=== PATIENT | female | born 1960 | race Caucasian/White ===

== ENCOUNTER → 2020-03-23 08:43 | Outpatient (BNVA) | payer MEDICAID, SELFPAY | PROVIDERS: PCP Internal Medicine; Referring Provider Internal Medicine; Visit Provider Student in an Organized Health Care Education/Training Program | DX: Z76.89 Persons encountering health services in other specified circumstances (principal) ==

== ENCOUNTER → 2020-10-18 15:25 | Outpatient (BNVA) | payer MEDICAID, SELFPAY | PROVIDERS: PCP Internal Medicine; Referring Provider Internal Medicine; Visit Provider Student in an Organized Health Care Education/Training Program | DX: M35.3 Polymyalgia rheumatica (principal); Z79.52 Long term (current) use of systemic steroids | CPT/HCPCS: 99212 ==

== ENCOUNTER 2020-10-20 13:44 | Outpatient (REF) | payer MEDICAID, SELFPAY ==
--- NOTE | ~2020-10-20 | MM_ITS ---
EXAMINATION: BONE DENSITOMETRY CLINICAL INDICATION: Long-term (current) use of systemic steroids. COMPARISON: This is the patient's baseline examination. TECHNIQUE: Using a Geodesic dome [place] DXA System (software version: 13.1) manufactured by [employer], dual-energy x-ray absorptiometry was performed of the lumbar spine and left hip. The images are of good technical quality. Summary results are attached. FINDINGS: AP SPINE L1-L4: BMD 1.137 g/cm2, Z-score 0.0, T-score -0.4, normal. LEFT FEMUR, NECK: BMD 0.830 g/cm2, Z-score -0.8, T-score -1.5, osteopenia. LEFT FEMUR, TOTAL: BMD 0.942 g/cm2, Z-score -0.2, T-score -0.5, normal. IDENTIFIED RISK FACTORS: Early menopause, glucocorticoids (chronic), secondary osteoporosis. HISTORY OF FRACTURE: None listed. MEDICATIONS: None listed. MM/XR DEXA axial skeleton IMPRESSION: 1. DIAGNOSIS: Osteopenia based on the lowest T-score value of -1.5 in the femoral neck applying World Health Organization criteria. 2. 10-YEAR FRACTURE RISK PREDICTION, FRAX: Major osteoporotic fracture (clinical spine, forearm, hip or shoulder) 6.5%. Hip fracture 0.6%. 3. Treatment Recommendations: NOF guidelines recommend consideration for treatment in postmenopausal women and men age 50 and older presenting with the following: -A hip or vertebral (clinical or morphometric) fracture. -T-score less than or equal to -2.5 at the femoral neck or spine after appropriate evaluation to exclude secondary causes. -Low bone mass at the hip or spine and a 10-year fracture probability by FRAX of greater than or equal to 3% for hip fracture or greater than or equal to 20% for major osteoporotic fracture based on the [place] adapted WHO algorithm. 4. Other Recommendations: All treatment decisions require clinical judgment and consideration of individual patient factors, including patient preferences, comorbidities, previous drug use, risk factors not captured in the FRAX model (e.g. frailty, falls, vitamin D deficiency, increased bone turnover, interval significant decline in bone density) and possible under or overestimation of fracture risk by FRAX. Additional medical evaluation for secondary cause of low bone mineral density may be appropriate. FUTURE SCAN RECOMMENDATION: People with diagnosed cases of osteoporosis or at high risk for fracture should have regular bone mineral density tests. For patients eligible for Medicare, routine testing is allowed once every 2 years. The testing frequency can be increased to one year for patients who have rapidly progressing disease, those who are receiving or discontinuing medical therapy to restore bone mass, or have additional risk factors.
== END 2020-10-20 13:45 | disposition home or self-care (01) ==
LOC: HO.MAMMO 13:44
PROVIDERS: Visit Provider Student in an Organized Health Care Education/Training Program
DX: Z79.52 Long term (current) use of systemic steroids (principal)
CPT/HCPCS: 77080

== ENCOUNTER 2025-01-12 11:21 | Emergency (ER) | payer SELFPAY ==
--- NOTE | ~2025-01-12 | XR_ITS ---
EXAMINATION: XR CHEST CLINICAL INFORMATION: dyspnea COMPARISON: None available. TECHNIQUE: 2 views of the chest were obtained. FINDINGS: The cardiac, hilar, and mediastinal contours are normal. The lungs are clear bilaterally. There is no pneumothorax or pleural effusion. There is no focal osseous or soft tissue abnormality. Mild degenerative changes of the spine. XR/XR chest 2V IMPRESSION: No active pulmonary disease. Electronically signed by: Hussein Peralta MD 01/12/2025 11:49 AM EDT
--- NOTE | ~2025-01-12 | US_ITS ---
EXAMINATION: US TRIPLEX LOWER EXTREMITY, BILATERAL CLINICAL INFORMATION: Bilateral lower extremity edema. COMPARISON: None available. TECHNIQUE: Color-flow triplex imaging with spectral analysis and compression Doppler were performed on the bilateral lower extremities. FINDINGS: Respiratory variation, normal compression and augmented flow are noted throughout the bilateral lower extremities. The visualized common femoral vein, superficial femoral vein, profunda femoral vein, popliteal vein and midcalf peroneal and posterior tibial venous segments show no evidence of deep venous thrombosis bilaterally. There is no Linares's cyst. US/US venous duplex LE BI IMPRESSION: No evidence of deep venous thrombosis involving the bilateral lower extremities. Electronically signed by: Hussein Peralta MD 01/12/2025 03:57 PM EDT
[2025-01-12 11:32] VITALS: BP 196/86; PULSE 64; RESP 18; TEMP 36.8; O2SAT 98; BMI 36.6
--- NOTE | 2025-01-12 11:32 | ED_ITS ---
HPI - General Adult General Chief complaint: Extremity Injury, Lower Stated complaint: bilateral ankle swolling, pain, sob Time Seen by Provider: 01/12/25 12:58 Source: patient Mode of arrival: ambulatory Limitations: no limitations History of Present Illness ED Provider: DR. Abarca HPI narrative: 64-year-old female came in for evaluation of bilateral eye ankle swelling for few days, patient declined any recent travel, no recent prolonged immobilization patient also been having a mild shortness of breath only with exertion. Otherwise no fever, no chills, no shortness of breath, no CP no recent prolonged immobilization. Five years ago patient had left knee surgery complicated with post surgical DVT and pulmonary embolism patient now is off anticoagulation. Related Data Home Medications ?Medication ?Instructions ?Recorded ?Confirmed aspirin 81 mg tablet,delayed 81 mg PO DAILY 03/23/20 1 05/24/19 release insulin degludec 100 unit/mL (3 10 unit subcut DAILY 1 05/24/19 03/23/20 mL) subcutaneous pen (Tresiba FlexTouch U-100 insulin) lisinopril 5 mg tablet 5 mg PO DAILY 03/23/2003/23 metformin 500 mg tablet 500 mg PO BID 03/23/2003/23 sitagliptin phosphate 100 mg 100 mg PO DAILY 03/23/20 03/23/20 tablet (Januvia) Previous Rx's ?Medication ?Instructions ?Recorded prednisone 1 mg tablet 4 mg (4 x 1 mg) PO DAILY #12 0 tabs 10/18/20 Allergies Allergy/AdvReac Type Severity Reaction Status Date / Time No Known Allergies Allergy Verified 01/12/25 11:34 Review of Systems 2 Review of Systems: All other systems are reviewed and are negative Constitutional: Reports as per HPI and Reports no additional constitutional complaints Eyes: Reports as per HPI and Reports no additional eye complaints Reports system reviewed and no additional complaints, except as documented Cardiovascular: Reports as per HPI and Reports no additional cardiovascular complaints Respiratory: Reports as per HPI and Reports no additional respiratory complaints Gastrointestinal: Reports as per HPI and Reports no additional gastrointestinal complaints Genitourinary: Reports no additional female genitourinary complaints Musculoskeletal: Reports no additional musculoskeletal complaints Skin/Breast: Reports system reviewed and no additional complaints, except as docu Psychiatric: Reports no additional psychiatric complaints Endocrine: Reports no additional endocrine complaints Hematologic/Lymphatic: Reports no additional hematologic/lymphatic complaints Allergic/Immunologic: Reports no additional allergic/immunologic complaints Reports system reviewed and no additional complaints, except as documented and Reports Abnormal speech present [facility] Past Medical History Medical History Denial Polymyalgia rheumatica Family History Family History Maternal Grandmother Diabetes Father MVA (motor vehicle accident) Mother AIDS Social History Social History Household Members: None Housing: Apartment Alcohol intake: current Alcohol intake frequency: holidays/special occasions only Patient Tobacco Use Status: Never used Tobacco Smoked in Last 30 Days: No Use of substances other than those prescribed or required for medical reasons: No Advance Directives: No Advance Directives Information Provided: Yes Do you have a plan to hurt others: No Plan Patient : No service: No Current occupational status: employed Physical Exam ED Vital Signs: Vital Signs - 24 hr 01/12/25 11:32 01/12/25 12:53 01/12/25 14:01 Temperature 98.2 F 98.1 F 98.4 F Pulse Rate 64 59 63 Respiratory Rate 18 13 10 L Blood Pressure 196/86 H 145/69 H 146/66 H Pulse Oximetry 98 99 100 Oxygen Delivery Method Room Air Room Air Room Air 01/12/25 16:34 01/12/25 16:50 Temperature 98.4 F 98.4 F Pulse Rate 63 63 Respiratory Rate 10 L 10 L Blood Pressure 146/66 H 146/66 H Pulse Oximetry 100 100 Oxygen Delivery Method Room Air Room Air BMI result Body Mass Index 36.6 Vital signs have been reviewed and appear to be correct. Blood pressure elevated. Heart rate normal. Respiratory rate normal. Temperature normal. Oxygen saturation normal. Appearance: Alert. Oriented X3. No acute distress. Head: Normal external exam. Normocephalic. Atraumatic. No [place] signs noted. No raccoon eyes noted Eyes: PERRLA. EOMI. Conjunctiva and sclera normal. Eyelids normal. ENT: TM's Normal. Pharynx normal. Uvula midline. Moist mucous membranes. No trismus noted. No drooling noted. No muffled voice noted. Neck: Normal inspection. Neck supple. FROM. No adenopathy. Thyroid Normal. No meningeal signs. No neck mass noted. CVS: Normal heart rate and rhythm. Heart sound normal. No murmurs noted. Pulses normal throughout. Respiratory: No respiratory distress. Painless inspiration. Breath sounds normal. No wheezes/rales/rhonchi noted. Chest nontender. No accessory muscle usage noted or decreased air movement noted. Abdomen: Soft and nontender. Bowel sounds normal in all 4 quadrants. No distention noted. No organomegaly noted. No visible injury noted. Back: No CVA tenderness. Full range of motion noted. Skin: Skin warm and dry. Normal skin color. Normal skin turgor. No rashes/lesions/lacerations noted. Extremities: +1 bilateral ankle edema. Extremities exhibit normal range of motion. Extremities nontender. Neuro: Oriented X 3. Cranial nerve exam: II-XII are grossly intact No motor deficit. No sensory deficit. Reflexes normal. Course Course Course Narrative: This is a rapid medical exam performed by Bhavik Jarrett NP: Additional HPI, ROS, PE not included below will be deferred to primary provider. Patient is a 64y/o F pmhx polymyalgia rheumatica with skilled nursing systemic steroid use presenting with several days of bilateral ankle swelling and dyspnea. Has tried elevating, ice without improvement. Hypertensive in triage, not on BP meds. 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 Cartwright to check on the ultrasound expect no complications and discharge home with follow up with pcp. Time: 15:20 Medical Decision Making Differential Diagnosis Differential Diagnoses: The differential diagnosis associated with the presentation includes (DVT, CHF, renal disease, hepatic disease, venous stasis, electrolyte derangement, severe anemia urinary) Admission/Observation Consideration of admission/observation: Escalation of care including admission/observation considered Lab Data MDM Lab Attestation statement: I reviewed the patient's lab results. 01/12/25 12:13 01/12/25 12:13 Labs: Lab Results 01/12/25 01/12/25 Range/Units 12:13 13:11 WBC 7.4 (4.8-10.8) X10*3/uL RBC 4.61 (4.20-5.50) X10*6/uL Hgb 12.1 (12.0-16.0) g/dl Hct 38.1 (37.0-47.0) % MCV 82.6 (80.0-98.0) fL MCH 26.2 L (27.0-33.0) pg MCHC 31.8 (31.0-35.0) g/dl RDW 15.2 (11.0-16.0) % Plt Count 170 (160-400) X10*3/uL MPV 11.1 (9.4-12.3) fL Immature Gran % (Auto) 0.3 (0.0-0.4) % Neut % (Auto) 62.9 (45-73) % Lymph % (Auto) 28.2 (20-40) % [place] % (Auto) 6.6 (2-11) % Eos % (Auto) 1.5 (0-4) % Baso % (Auto) 0.5 (0-2) % Lymph # (Auto) 2.1 (1.2-4.9) X10*3/uL [place] # (Auto) 0.5 (0.1-1.2) X10*3/uL Eos # (Auto) 0.1 (0.0-0.4) X10*3/uL Baso # (Auto) 0.0 (0.0-0.2) X10*3/uL Abs Immat Gran (auto) 0.02 (0.00-0.03) X10*3/uL Absolute Neuts (auto) 4.7 (2.0-8.3) x10*3/uL Absolute Nucleated RBC 0.000 (0.0-0.012) X10*3/uL Nucleated RBC % (auto) 0.0 (0.0-0.2) /100WBC Sodium 140 (135-145) mmol/L Potassium 4.7 (3.3-5.1) mmol/L Chloride 106 (96-108) mmol/L Carbon Dioxide 30 H (22-29) mmol/L Anion Gap 9 L (12-20) BUN 15 (9-16) mg/dL Creatinine 0.81 (0.5-1.4) mg/dL Estim Creat Clear Calc 73.5 Estimated GFR > 60 Random Glucose 112 (60-115) mg/dL Calcium 9.1 (8.4-10.2) mg/dL Total Bilirubin 0.3 (0.0-1.0) mg/dL AST 23 (5-31) U/L ALT 16 (0-31) U/L Alkaline Phosphatase 77 (39-117) U/L Troponin I High Sens < 2.7 (<3.5-17.0) ng/L NT-Pro-B Natriuret Pep 258.2 (<300) pg/mL Total Protein 6.9 (6.5-8.0) g/dL Albumin 3.9 (3.5-5.0) g/dL Urine Color Yellow Urine Appearance Clear Urine pH 5.5 (5.0-9.0) Ur Specific [place] 1.010 (1.005-1.025) Urine Protein Negative (Neg-Trace) mg/dL Urine Glucose (UA) Negative (Negative) mg/dL Urine Ketones Negative (Negative) mg/dL Urine Blood Negative (Negative) Urine Nitrite Negative (Negative) Ur Leukocyte Esterase Negative (Negative) Independent Interpretation I performed an independent interpretation of an: Plain X-Ray (Chest: No acute intrathoracic pathology.) Radiology Impression Discussion of test interpretation with radiology: I have reviewed the radiologist's reading. Discharge Plan Discharge Clinical Impression: Ankle swelling Patient Disposition: Home, Self-Care Instructions: Swollen Joint (ED) Prescriptions: No Action Tresiba FlexTouch U-100 100 unit/mL (3 mL) insulin pen 10 unit subcut DAILY lisinopril 5 mg tablet 5 mg PO DAILY metformin 500 mg tablet 500 mg PO BID aspirin 81 mg tablet,delayed release (DR/EC) 81 mg PO DAILY Januvia 100 mg tablet 100 mg PO DAILY prednisone 1 mg tablet 4 mg PO DAILY Qty: 120 2RF Referrals: Favian Espinosa DO, MD [Primary Care Provider, Internal Medicine] Interventions: ED Discharge Assessment Last Done: 01/12/25 16:50 Discharge Date/Time: 01/12/25 16:50 Print Language: Burundian
--- NOTE | 2025-01-12 11:34 | ECG_ITS ---
Test Reason : SOB Blood Pressure : */* mmHG Vent. Rate : 62 BPM Atrial Rate : 62 BPM P-R Int : 152 ms QRS Dur : 74 ms QT Int : 386 ms P-R-T Axes : 61 42 27 degrees QTcB Int : 391 ms Normal sinus rhythm Normal ECG No previous ECGs available Referred By: Lolly Jarrett Electronically Signed By: Amos Ackerman
[2025-01-12 12:19] LABS: MANUAL DIFF FLAG NO
[2025-01-12 12:21] LABS: Hematocrit 38.1 % (37.0-47.0); Hemoglobin 12.1 g/dl (12.0-16.0); Imm Gran Abs Auto 0.02 X10*3/uL (0.00-0.03); Imm Gran Pct Auto 0.3 % (0.0-0.4); Lymphocytes Absolute Auto 2.1 X10*3/uL (1.2-4.9); Mean Corpuscular HGB Conc 31.8 g/dl (31.0-35.0); Mean Corpuscular Hemoglobin 26.2 pg (27.0-33.0); Mean Corpuscular Volume 82.6 fL (80.0-98.0); NRBC Abs Auto 0.000 X10*3/uL (0.0-0.012); NRBC Pct Auto 0.0 /100WBC (0.0-0.2); Platelet Count 170 X10*3/uL (160-400); Red Blood Count 4.61 X10*6/uL (4.20-5.50); White Blood Count 7.4 X10*3/uL (4.8-10.8)
[2025-01-12 12:36] LABS: Alanine Aminotransferase 16 U/L (0-31); Albumin Level 3.9 g/dL (3.5-5.0); Alkaline Phosphatase 77 U/L (39-117); Anion Gap 9 (12-20); Aspartate Amino Transferase 23 U/L (5-31); Blood Urea Nitrogen 15 mg/dL (9-16); Calcium 9.1 mg/dL (8.4-10.2); Carbon Dioxide 30 mmol/L (22-29); Chloride 106 mmol/L (96-108); Creatinine Clr Calc Pharmacy 73.5; Estimated Glomerular Filt Rate > 60; Potassium 4.7 mmol/L (3.3-5.1); Sodium 140 mmol/L (135-145); Total Protein 6.9 g/dL (6.5-8.0)
[2025-01-12 12:42] LABS: NT Pro B Type Natriuretic Pept 258.2 pg/mL (<300)
[2025-01-12 12:46] LABS: Troponin-I High Sensitivity < 2.7 ng/L (<3.5-17.0)
[2025-01-12 12:53] VITALS: BP 145/69; PULSE 59; RESP 13; TEMP 36.7; O2SAT 99
--- NOTE | 2025-01-12 12:58 | PC.NURSE ---
Patient presents to ED c/o ankle swelling and pain with some SOB O2 98% RA Pain rated 7/10 which started on Friday and worsened since then No hx of CHF, asthma Blood collected/sent CXR = negative EKG = NSR Awaiting urine sample at this time Plan of care on going
[2025-01-12 13:18] LABS: Appearance Urine Clear; Glucose Urine UA Negative (Negative); PH 5.5 (5.0-9.0); Specific Gravity - Urine 1.010 (1.005-1.025)
[2025-01-12 14:01] VITALS: BP 146/66; PULSE 63; RESP 10; TEMP 36.9; O2SAT 100
--- OUTSIDE RECORDS SUMMARY | 2025-01-12 14:52 | XMS_ITS | Clinical Summary ---
Author Organization [address] Address [address] [place] [id number] Phone Care Team Providers Care Cook Vacuum Kettle Name Role Phone Favian Espinosa DO Primary Care Provider [phone] Surgical History Surgery Date Site/Laterality Comments KNEE SURGERY Left PROCEDURE: HISTORICAL KNEE SURGERY; COMMENT: around 2014, at [facility], had DVT Medical History Medical History Date Comments DVT (deep venous thrombosis) ([facility] V24, [facility] V28) DX:DVT (deep venous thrombos is) ([facility]) HTN (hypertension) DX:HTN (hyper tension) Thyroid nodule DX:Thyroid nodul e PMR (polymyalgia rheumatica) ([facility] V24) DX:PMR (polymyalgia rheumatica) ([facility]) Family History Medical History Relation Name Comments No Known Problems Father Diabetes Maternal Grandmother No Known Problems Mother Cervical cancer Sister 1 mirtha Other: neck cancer, possible in lymph nodes Sister 2 Lorrie Relation Name Status Comments Father Maternal Grandfather Maternal Grandmother Mother Paternal Grandfather Paternal Grandmother Sister 1 mirtha Alive Sister 2 Lorrie Alive Social History Tobacco Use Types Packs/Day Years Used Date Smoking Tobacco: Never Smokeless Tobacco: Never Comments Unknown Sex and Gender Information Value Date Recorded Sex Assigned at Not on file Legal Sex Female 2:54 AM EST Gender Identity Not on file Sexual Orientation Not on file Obstetrics History Last Filed Vital Signs Vital Sign Reading Time Taken Comments Blood Pressure 120/62 04/26/2022 1:25 PM EST Cuf f Pulse 67 04/26/2022 1:25 PM EST Temperature - - Respiratory Rate - - Oxygen Saturation - - Inhaled Oxygen Concentration - - Weight 78.3 kg (172 lb 9.6 oz) 04/26/2022 1:25 P M EST Height 157.5 cm (5' 2 ) 04/26/2022 1:25 PM EST Body Mass Index 31.57 04/26/2022 1:25 PM EST Plan of Treatment Health Maintenance Due Date Last Done Comments Breast Cancer Screening 1960 Cervical Cancer Screening: P ap Smear 1981 Pneumococcal Vaccine: 50+ Years (1 of 1 - PCV) 2010 Zoster Vaccines (1 of 2) 2010 Cholesterol Screening (Lipid Panel) 03/24/2022 HIV Screening 03/24/2022 Hepatitis C Screening 03/24/2022 Social Influencers of Health Screening 03/24/2022 Depression Screening 04/21/2024 COVID-19 Vaccine (3 - 2024-2 6 season) 2024 08/04/2020, 07/13/2020 Influenza Vaccine (#1) 2024 , 02/28/2022 Hypertension/CHF/CAD Annual BMP Blood Test 03/09/2025 03/09/2024 Colorectal Cancer Screening: Colonoscopy 09/17/2026 09/17/2016 DTaP,Tdap,and Td Vaccines (2 - Td or Tdap) 02/27/2034 02/28/2024 RSV Immunization Adult Patients (1 - 1-dose 75+ series) 2035 HIB Vaccines Aged Out No longer eligi ble based on patient's age to complete this topic HPV Vaccines Aged Out No longer eligi ble based on patient's age to complete this topic Hepatitis A Vaccines Aged Out No long er eligible based on patient's age to complete this topic Hepatitis B Vaccines Aged Out No long er eligible based on patient's age to complete this topic IPV Vaccines Aged Out No longer eligi ble based on patient's age to complete this topic MMR Vaccines Aged Out No longer eligi ble based on patient's age to complete this topic Meningococcal ACWY Vaccine Aged Out N o longer eligible based on patient's age to complete this topic Meningococcal B Vaccine Aged Out No l onger eligible based on patient's age to complete this topic RSV Immunization Patients Under 20 months Aged Out No longer eligible b ased on patient's age to complete this topic Varicella Vaccines Aged Out No longer eligible based on patient's age to complete this topic Procedures Procedure Name Priority Date/Time Associated Diagnosis Comments COMPREHENSIVE METABOLIC PANEL Routine 03/09/2024 8:36 AM EST Weight gain EXTERNAL COLONOSCOPY REPORT Routine 09/17/2016 9:27 AM EDT from Last 3 Months or Most Recently Relevant to Health Maintenance Results * (ABNORMAL) Comprehensive metabolic panel (03/09/2024 8:36 AM EST) Sodium 141 133 - 145 mmol/L LAB CHEMISTRY METHOD 03/09/2024 11:40 AM [facility] Potassium 4.5 3.5 - 5.5 mmol/L LAB CHEMISTRY METHOD 03/09/2024 11:40 AM [facility] Chloride 107 96 - 110 mmol/L LAB CHEMISTRY METHOD 03/09/2024 11:40 AM [facility] CO2 30 21 - 32 mmol/L LAB CHEMISTRY METHOD 03/09/2024 11:40 AM [facility] Anion Gap 4 3 - 11 LAB CHEMISTRY METHOD 03/09/2024 11:40 AM [facility] Glucose 120(H) 70 - 100 mg/dL LAB CHEMISTRY METHOD 03/09/2024 11:40 AM [facility] BUN 18 5 - 25 mg/dL LAB CHEMISTRY METHOD 03/09/2024 11:40 AM [facility] Creatinine 0.86 0.50 - 1.10 mg/dL LAB CHEMISTRY METHOD 03/09/2024 11:40 AM [facility] eGFR 76 >=60 mL/min/1. 73m2 LAB CHEMISTRY METHOD 03/09/2024 11:40 AM [facility] Comment:Calculation based on the Chronic Kidney Disease Epidemiology Collaboration (CKD-EPI) equation refit without adjustment for race. BUN/Creatinine Ratio 20.9 LAB CHEMISTRY METHOD 03/09/2024 11:40 AM [facility] Calcium 8.9 8.5 - 10.5 mg/dL LAB CHEMISTRY METHOD 03/09/2024 11:40 AM [facility] AST (SGOT) 14 10 - 42 unit/L LAB CHEMISTRY METHOD 03/09/2024 11:40 AM [facility] ALT (SGPT) 19 10 - 60 unit/L LAB CHEMISTRY METHOD 03/09/2024 11:40 AM [facility] Alkaline Phosphatase 79 42 - 121 unit/L LAB CHEMISTRY METHOD 03/09/2024 11:40 AM [facility] Total Protein 6.8 6.0 - 8.0 g/dL LAB CHEMISTRY METHOD 03/09/2024 11:40 AM [facility] Albumin 3.5 3.2 - 5.0 g/dL LAB CHEMISTRY METHOD 03/09/2024 11:40 AM [facility] Total Bilirubin 0.4 0.0 - 1.4 mg/dL LAB CHEMISTRY METHOD 03/09/2024 11:40 AM [facility] Blood Venous blood specimen / Unknown Venipuncture / Unknown 03/09/2024 8:36 AM EST 03/09/2024 8:36 AM EST Gi Sousa NP LAB BLOOD ORDERABLES Fi nal Result [facility] [address] [place] [address], * External Colonoscopy Report (09/17/2016 9:27 AM EDT) Anatomical Region Laterality Modality Endoscopy Historical Provider GI~PROCEDURE ORDERABLES F inal Result from Last 3 Months or Most Recently Relevant to Health Maintenance Insurance MEDICAID - [place] Care Teams Cook Vacuum Kettle Relationship Specialty Start Date End Date Favian Espinosa DO [address] [place] [phone] PCP - General Internal Medicine 02/26/17
--- OUTSIDE RECORDS SUMMARY | 2025-01-12 14:52 | XMS_ITS | Encounter Summary ---
Demographics Address [address] [place] [address] Mobile Phone Home Phone Preferred Language Romansh Marital Status Single Caodaism Affiliation Unknown Race White Ethnic Group or Author Organization [facility] Address [address] [place] [address] Phone Care Team Providers Care Software Project Manager Name Role Phone Favian Espinosa DO Primary Care Provider [phone] Encounter Details Date Type Department Care Team (Late st Contact Info) Description 11/11/2018 Procedure Pass [facility] [address] [address] Social History Tobacco Use Types Packs/Day Years Used Date Smoking Tobacco: Never Alcohol Use Standard Drinks/Week Comments Yes 0 (1 standard drink = 0.6 oz pur e alcohol) Comments Unknown Sex and Gender Information Value Date Recorded Sex Assigned at Not on file Legal Sex Female 3:39 PM EDT Gender Identity Not on file Sexual Orientation Not on file documented as of this encounter Plan of Treatment Not on file documented as of this encounter Visit Diagnoses Not on filedocumented in this encounter Care Teams Software Project Manager Relationship Specialty Start Date End Date Favian Espinosa DO [address] [place] [address] [address] [place] [address] PCP - General Internal Medicine 09/08/18 documented as of this encounter Additional Source Comments The information contained in this document represents components of the legal health record. It is not the complete legal health record.[facility]
--- OUTSIDE RECORDS SUMMARY | 2025-01-12 14:52 | XMS_ITS | Clinical Summary ---
Demographics Address [address] [place] [address] Mobile Phone Home Phone Preferred Language Belarusian Marital Status Single Muslim Affiliation Unknown Race White Ethnic Group or Author Organization [facility] Address [address] [place] [address] Phone Care Team Providers Care Bobbin Loose End Finder Name Role Phone ManuelFavian florence Primary Care Provider [phone] Allergies No known active allergies Medications Ca cit-D3-mag#11-zi ae-qlhn-dlj-bor (CALTRATE 600+D) 600 mg calcium- 800 unit-50 mg Tab Take 1 tablet by mouth daily. Active metFORMIN (GLUCOPHAGE) 500 MG tablet Take 500 mg by mouth 2 (two) times a day with meals. Active SITagliptin (JANUVIA) 100 MG tablet Take 50 mg by mouth daily. Active insulin degludec U-200 (TRESIBA FLEXTOUCH) 200 unit/mL (3 mL) InPn injection pen Inject under the skin. Active lisinopril (PRINIVIL,ZESTRI L) 5 MG tablet Take 1 tablet (5 mg total) by mouth daily. 30 tablet 11 11/05/2018 Active Active Problems Problem Noted Date Diagnosed Date Fibromyalgia Polymyalgia rheumatica Anxiety Obesity Thyroid nodule Family History Medical History Relation Comments Venous thrombosis Neg Hx Social History Tobacco Use Types Packs/Day Years Used Date Smoking Tobacco: Never Alcohol Use Standard Drinks/Week Comments Yes 0 (1 standard drink = 0.6 oz pur e alcohol) Education Answer Date Recorded Are you interested in more education? Not on berta e 08/16/2022 Are you concerned about learning? Not on file 08/16/2022 No 08/16/2022 No 08/16/2022 Digital Access Answer Date Recorded No 09/14/2022 No 09/14/2022 No 09/14/2022 Reliable internet access at home? Not on file 09/14/2022 Device with a working camera? Not on file Comments Unknown Sex and Gender Information Value Date Recorded Sex Assigned at Not on file Legal Sex Female 3:39 PM EDT Gender Identity Not on file Sexual Orientation Not on file Last Filed Vital Signs Vital Sign Reading Time Taken Comments Blood Pressure 186/85 11/20/2018 3:07 PM EDT Pulse 83 11/20/2018 3:07 PM EDT Temperature - - Respiratory Rate 14 11/20/2018 3:07 PM EDT Oxygen Saturation 99% 11/20/2018 3:07 PM EDT Inhaled Oxygen Concentration - - Weight - - Height - - Body Mass Index - - Plan of Treatment Health Maintenance Due Date Last Done Comments Adult Td,Tdap Booster 1960 CREATININE LEVEL 1960 LIPID PANEL 1960 POTASSIUM LEVEL 1960 DEPRESSION SCREENING 1972 HEPATITIS C SCREENING 1978 HIV ONE-TIME SCREENING (18-6 5 YEARS) 1978 PAP SMEAR 1981 SMOKING STATUS SCREENING (On ce After 26 Yrs) 1986 MAMMOGRAM 2000 COLOGUARD 2005 COLONOSCOPY 2005 COLORECTAL CANCER SCREENING 2005 FIT TEST 2005 FOBT 2005 SIGMOIDOSCOPY 2005 VIRTUAL COLONOSCOPY 2005 PNEUMOCOCCAL VACCINES (50+ y ears) (1 of 1 - PCV) 2010 ZOSTER VACCINES (1 of 2) 2010 INFLUENZA VACCINE (#1) 2024 COVID-19 VACCINE (2 - 2024-2 6 season) 2024 07/13/2020 RSV VACCINE (1 - 1-dose 75+ series) 2035 HEPATITIS A VACCINES Aged Out No long er eligible based on patient's age to complete this topic HIB VACCINES Aged Out No longer eligi ble based on patient's age to complete this topic MENINGOCOCCAL VACCINES (ACWY) Aged Out No longer eligible based on patient's age to complete this topic MENINGOCOCCAL VACCINES (B) Aged Out N o longer eligible based on patient's age to complete this topic Medical Devices Not on file Insurance [facility] Care Teams Bobbin Loose End Finder Relationship Specialty Start Date End Date Favian Espinosa DO [address] [place] [id number] PCP - General Internal Medicine 09/08/18 Additional Source Comments The information contained in this document represents components of the legal health record. It is not the complete legal health record.[facility]
--- OUTSIDE RECORDS SUMMARY | 2025-01-12 14:52 | XMS_ITS | Encounter Summary ---
Demographics Address [address] [place] [address] Mobile Phone Home Phone Preferred Language Slovak Marital Status Single Latter Day Affiliation Unknown Race White Ethnic Group or Author Organization [facility] Address [address] [place] [address] Phone Care Team Providers Care Metal Sander Name Role Phone Favian Espinosa DO Primary Care Provider [phone] Encounter Details Date Type Department Care Team (Late st Contact Info) Description 10/01/2018 Ancillary Orders PHYSICIAN [facility] Wei Todd MD [address] [place] [id number] Cluster headache, not intractable, unspecified chronicity pattern Social History Tobacco Use Types Packs/Day Years Used Date Smoking Tobacco: Never Assessed Comments Unknown Sex and Gender Information Value Date Recorded Sex Assigned at Not on file Legal Sex Female 3:39 PM EDT Gender Identity Not on file Sexual Orientation Not on file documented as of this encounter Plan of Treatment Not on file documented as of this encounter Visit Diagnoses Diagnosis Cluster headache, not intractable, unspecified chronicity pattern documented in this encounter Care Teams Metal Sander Relationship Specialty Start Date End Date Favian Espinosa DO [address] [place] [address] [address] [place] [address] PCP - General Internal Medicine 09/08/18 documented as of this encounter Additional Source Comments The information contained in this document represents components of the legal health record. It is not the complete legal health record.[facility]
--- OUTSIDE RECORDS SUMMARY | 2025-01-12 14:52 | XMS_ITS | Encounter Summary ---
Demographics Address [address] [place] [address] Mobile Phone Home Phone Preferred Language Tamazight Marital Status Single Lutheran Affiliation Unknown Race White Ethnic Group or Author Organization [facility] Address [address] [place] [address] Phone Care Team Providers Care Bore Mill Operator Name Role Phone Favian Espinosa DO Primary Care Provider [phone] Encounter Details Date Type Department Care Team (Late st Contact Info) Description 11/20/2018 Procedure Pass [facility] [address] [address] Social History Tobacco Use Types Packs/Day Years [...] on filedocumented in this encounter Care Teams Bore Mill Operator Relationship Specialty Start Date End Date Favian Espinosa DO [address] [place] [address] [address] [place] [address] PCP - General Internal Medicine 09/08/18 documented as of this encounter Additional Source Comments The information contained in this document represents components of the legal health record. It is not the complete legal health record.[facility]
--- OUTSIDE RECORDS SUMMARY | 2025-01-12 14:52 | XMS_ITS | Clinical Summary ---
Author Organization [facility] Address [address] [place] [address] Care Team Providers Care Skiver Counter Name Role Phone Favian Espinosa Primary Care Provider [phone] Allergies No known active allergies Medications Medication Sig Dispensed Refills Start Date End Date Status DULOXETINE HCL PO Take by mouth. 0 Act noy Active Problems Problem Noted Date Diagnosed Date Acute meniscal tear of left knee 02/28/2017 Arthralgia of right knee 02/28/2017 Social History Tobacco Use Types Packs/Day Years Used Date Smoking Tobacco: Never Smokeless Tobacco: Never Alcohol Use Standard Drinks/Week Comments No 0 (1 standard drink = 0.6 oz pur e alcohol) Sex and Gender Information Value Date Recorded Sex Assigned at Not on file Gender Identity Not on file Sexual Orientation Not on file Last Filed Vital Signs Vital Sign Reading Time Taken Comments Blood Pressure - - Pulse - - Temperature - - Respiratory Rate - - Oxygen Saturation - - Inhaled Oxygen Concentration - - Weight 97.5 kg (215 lb) 06/24/2017 1:30 PM EST Height 154.9 cm (5' 1 ) 06/24/2017 1:30 PM EST Body Mass Index 40.62 06/24/2017 1:30 PM EST Plan of Treatment Health Maintenance Due Date Last Done Comments Hepatitis C Screening 1960 COVID-19 Vaccine (#1) 1960 Depression Screening 1972 Preventative Health Evaluation 1978 DTap / Tdap / Td (1 - Tdap) 1979 Cervical Cancer Screening (P ap Smear) 1981 Colon Cancer Screening (Colonoscopy) 2005 Breast Cancer Screening (Mammogram) 2010 Shingrix-Zoster Vaccine (1 of 2) 2010 Influenza Vaccine (#1) 2024 Pneumococcal Vaccine (1 of 1 - PCV) 2025 RSV Adult > 60+ Yrs or Pregn ant (1 - 1-dose 75+ series) 2035 Hepatitis B Vaccines Aged Out No long er eligible based on patient's age to complete this topic Pneumococcal Vaccine Aged Out No long er eligible based on patient's age to complete this topic RSV Ped < 20 months Aged Out No longe r eligible based on patient's age to complete this topic Care Teams Skiver Counter Relationship Specialty Start Date End Date Favian Espinosa DO [address] [place] [address] [address] [place] [address] PCP - General Internal Medicine 02/26/17
[2025-01-12 16:34] VITALS: BP 146/66; PULSE 63; RESP 10; TEMP 36.9; O2SAT 100
[2025-01-12 16:50] VITALS: BP 146/66; PULSE 63; RESP 10; TEMP 36.9; O2SAT 100
== END 2025-01-12 16:50 | disposition home or self-care (01) ==
PROVIDERS: Registered Nurse Emergency; Emergency Provider Student in an Organized Health Care Education/Training Program; PCP Internal Medicine
DX: M25.472 Effusion, left ankle (principal); M25.471 Effusion, right ankle; M35.3 Polymyalgia rheumatica; Z79.899 Other long term (current) drug therapy
CPT/HCPCS: 36415; 71046; 80053; 81003; 83880; 84484; 85025; 93005; 93970; 99284

== ENCOUNTER → 2025-01-12 11:34 | Outpatient (BNV) | payer SELFPAY | PROVIDERS: Emergency Provider Student in an Organized Health Care Education/Training Program; PCP Internal Medicine; Visit Provider Internal Medicine Cardiovascular Disease | DX: R06.02 Shortness of breath (principal) | CPT/HCPCS: 93010 ==

== ENCOUNTER → 2025-01-12 11:35 | Outpatient (BNV) | payer SELFPAY | PROVIDERS: PCP Internal Medicine; Visit Provider Radiology Diagnostic Radiology | DX: R22.43 Localized swelling, mass and lump, lower limb, bilateral (principal); R06.00 Dyspnea, unspecified | CPT/HCPCS: 71046; 93970 ==